=== PATIENT | female | born 2000 | race Caucasian/White ===

== ENCOUNTER 2020-01-04 14:11 | Emergency (ER) | payer OTHER, SELFPAY ==
[2020-01-04 14:13] VITALS: BP 133/78; PULSE 104; RESP 14; TEMP 36.6; O2SAT 97; BMI 28.3
--- NOTE | 2020-01-04 14:22 | DI.RAD.S_ITS ---
PROCEDURE: XR WRIST LT MIN 3V INDICATIONS: wrist pain TECHNIQUE: 3 views of the wrist were acquired. COMPARISON: None. FINDINGS: Bones: No fractures or dislocations. No suspicious bony lesions. Scaphoid view: Scaphoid is grossly intact. Soft tissues: Small corticated bony fragment adjacent to dorsal aspect of distal carpal row, likely represent old healed injury. IMPRESSION: No acute wrist fracture or dislocation. Dictated by: Calvin Scott M.D. on 01/04/2020 at 14:36 Approved by: Calvin Scott M.D. on 01/04/2020 at 14:47
[2020-01-04] MEDS: KETOROLAC 60 MG/2 ML VIAL IM (14:41)
--- NOTE | 2020-01-04 14:41 | ED.EXTPRO ---
HPI - Extremity Problem General Chief complaint: Extremity Problem,Nontraumatic Stated complaint: Hurt her Left Wrist Time Seen by Provider: 01/04/20 14:16 Source: patient Mode of arrival: Ambulatory Limitations: no limitations Related Data Allergies Allergy/AdvReac Type Severity Reaction Status Date / Time No Known Drug Allergies Allergy Verified 01/04/20 14:18 Patient History Social History Smoking Status: Unknown if ever smoked Smoking Status: Unknown if ever smoked alcohol intake frequency: holidays/special occasions only Substance Use Type: does not use Exam Initial Vital Signs Initial Vital Signs: Vital Signs Temperature 97.9 F 01/04/20 14:13 Pulse Rate 104 H 01/04/20 14:13 Respiratory Rate 14 01/04/20 14:13 Blood Pressure 133/78 01/04/20 14:13 Pulse Oximetry 97 01/04/20 14:13 Course Orders Ordered: ED Orders 01/04/20 14:22 XR wrist LT min 3V Stat Discontinued Medications Ketorolac Tromethamine (Toradol) 60 mg IM NOW ONE Stop: 01/04/20 14:23 Vital Signs Vital signs: Vital Signs - 8 hr 01/04/20 14:13 Temperature 97.9 F Pulse Rate 104 H Respiratory Rate 14 Blood Pressure 133/78 Pulse Oximetry 97
--- NOTE | 2020-01-04 15:59 | ED_ITS ---
HPI - Extremity Problem <VESNA Cornejo - Last Filed: 01/04/20 17:09> General Chief complaint: Extremity Problem,Nontraumatic Stated complaint: Hurt her Left Wrist Time Seen by Provider: 01/04/20 14:16 Source: patient Mode of arrival: Ambulatory Limitations: no limitations History of Present Illness HPI Narrative: The patient is a 19-year-old female nonsmoker presents with a chief complaint of left-sided wrist pain. She does not know of any precipitating event or fall that would cause pain. She states that she has history of ganglionic cyst on the right side of her wrist, and wonders if she is having 1 on her left side. She took Tylenol yesterday, but otherwise has not taken anything for pain. She has not applied ice or taken Motrin. She denies any previous injury. Related Data Previous Rx's Medication Instructions Recorded ketorolac 10 mg PO TID PRN #14 tab 01/04/20 Allergies Allergy/AdvReac Type Severity Reaction Status Date / Time No Known Drug Allergies Allergy Verified 01/04/20 14:18 Review of Systems <VESNA Cornejo - Last Filed: 01/04/20 17:09> Review of Systems Narrative: GENERAL: Denies chills, fatigue, malaise, fever, sweats. HEENT: Denies sinus pain, ear pain, sore throat, difficulty swallowing, dizziness. RESPIRATORY: Denies dyspnea, cough, wheezing, hemoptysis, sputum. CARDIOVASCULAR: Denies chest pain, palpitations, orthopnea, edema, GASTROINTESTINAL: Denies nausea, vomiting, abdominal pain, diarrhea, constipation, melena. : Denies dysuria, frequency, incontinence, hematuria, urinary retention. MUSCULOSKELETAL: See HPI SKIN: Denies rash, skin lesions, or other NEUROLOGIC: Denies weakness, headache, numbness, change in speech, confusion, seizures, incoordination. PSYCHIATRIC: No concerning psychosocial issues. 12 point review of systems is negative except for those stated above Patient History <VESNA Cornejo - Last Filed: 01/04/20 17:09> Medical History (Updated 01/04/20 @ 16:24 by VESNA Cornejo) History of ganglion cyst (Acute) Social History Smoking Status: Unknown if ever smoked Smoking Status: Unknown if ever smoked alcohol intake frequency: holidays/special occasions only Substance Use Type: does not use Exam <VESNA Cornejo - Last Filed: 01/04/20 17:09> Narrative Exam Narrative: GENERAL: This is a well-nourished, well-developed patient, in no acute distress HEAD: Atraumatic. Normocephalic. No temporal or scalp tenderness. EYES: Pupils equal round and reactive. Extraocular motions intact. No scleral icterus. No injection or drainage. ENT: Nose without bleeding, purulent drainage or septal hematoma. Throat without erythema, tonsillar hypertrophy or exudate. Uvula midline. Airway patent. NECK: Trachea midline. No JVD or lymphadenopathy. Supple, nontender, no meningeal signs. CARDIOVASCULAR: Regular rate and rhythm RESPIRATORY: No cough. No increased respiratory effort. No accessory muscle use. EXTREMITIES: General pain to palpation on dorsum of left wrist. Decreased range of motion all florez left wrist. Positive radial pulse left wrist. Capillary refill less than 2 seconds all fingers left hand. BACK: Nontender without deformity or crepitance. No flank tenderness. NEURO: AOx3. SKIN: No rash or erythema on visible skin. No erythema laceration or abrasion noted left wrist Initial Vital Signs Initial Vital Signs: Vital Signs Temperature 97.9 F 01/04/20 14:13 Pulse Rate 104 H 01/04/20 14:13 Respiratory Rate 14 01/04/20 14:13 Blood Pressure 133/78 01/04/20 14:13 Pulse Oximetry 97 01/04/20 14:13 <Ammy Villanueva DO - Last Filed: 01/04/20 19:23> Initial Vital Signs Initial Vital Signs: Vital Signs Temperature 97.9 F 01/04/20 14:13 Pulse Rate 104 H 01/04/20 14:13 Respiratory Rate 14 01/04/20 14:13 Blood Pressure 133/78 01/04/20 14:13 Pulse Oximetry 97 01/04/20 14:13 Procedures <VESNA Cornejo - Last Filed: 01/04/20 17:09> Orthopedic Splinting/Casting Injury #1: Side: left Upper Extremity Immobilizer: wrist splint (Black removable wrist splint) Post splinting neuro exam: intact Post splinting vascular exam: intact Placed by: Nursing Scores <VESNA Cornejo - Last Filed: 01/04/20 17:09> GCS Kennedy coma scale eye opening: Spontaneous Kennedy coma scale verbal response: Orientated Kennedy coma scale motor response: Obey commands Kennedy coma scale total score: 15 Course <VESNA Cornejo - Last Filed: 01/04/20 17:09> Orders Ordered: ED Orders 01/04/20 14:22 XR wrist LT min 3V Stat Discontinued Medications Ketorolac Tromethamine (Toradol) 60 mg IM NOW ONE Stop: 01/04/20 14:23 Last Admin: 01/04/20 14:41 Dose: 60 mg Documented by: PETE Vital Signs Vital signs: Vital Signs - 8 hr 01/04/20 14:13 01/04/20 16:29 Temperature 97.9 F Pulse Rate 104 H 71 Respiratory Rate 14 16 Blood Pressure 133/78 Blood Pressure [Right Arm] 113/54 L Pulse Oximetry 97 99 <Ammy Villanueva DO - Last Filed: 01/04/20 19:23> Orders Ordered: ED Orders 01/04/20 14:22 XR wrist LT min 3V Stat Discontinued Medications Ketorolac Tromethamine (Toradol) 60 mg IM NOW ONE Stop: 01/04/20 14:23 Last Admin: 01/04/20 14:41 Dose: 60 mg Documented by: PETE Vital Signs Vital signs: Vital Signs - 8 hr 01/04/20 14:13 01/04/20 16:29 Temperature 97.9 F Pulse Rate 104 H 71 Respiratory Rate 14 16 Blood Pressure 133/78 Blood Pressure [Right Arm] 113/54 L Pulse Oximetry 97 99 MDM - Extremity (Nontraumatic) <VESNA Cornejo - Last Filed: 01/04/20 17:09> Imaging Data Extremity x-ray #1: Radiologist's Impression: [address] [place] [id number] XRay Report Signed Patient: Martha Lisa RMR#: [id number] : 2000Acct:[id number] Age/Sex: 19 / FDate of Service: 01/04/20 Loc: ED Accession Number: [id number] Procedure: XR wrist LT min 3V Ordering Provider: Nina,Ammy [employer]TER OPERATOR-BC PROCEDURE: XR WRIST LT MIN 3V INDICATIONS: wrist pain TECHNIQUE: 3 views of the wrist were acquired. COMPARISON: None. FINDINGS: Bones: No fractures or dislocations. No suspicious bony lesions. Scaphoid view: Scaphoid is grossly intact. Soft tissues: Small corticated bony fragment adjacent to dorsal aspect of distal carpal row, likely represent old healed injury. IMPRESSION: No acute wrist fracture or dislocation. Dictated by: Calvin Scott M.D. on 01/04/2020 at 14:36 Approved by: Calvin Scott M.D. on 01/04/2020 at 14:47 MDM Narrative Medical decision making narrative: The patient is a 19-year-old female who presents with a chief complaint of 1 day history of wrist pain. She has a negative x-ray for any acute fracture, I did discuss the possibility of a previous injury given her x-ray. She was given Toradol in the emergency department, did give her prescription of that with strict instructions to not combine it with ibuprofen or Aleve. She is neurovascularly intact throughout her stay in the emergency department. Is possible that she strain or sprain injury without knowing what occurred. I discussed at length rest ice compression elevation as well as follow-up with primary care provider in the next few days. Patient has no questions or concerns upon discharge and states understanding of return precautions as well as follow-up care. Discharge Plan Departure Patient Disposition: Home Clinical Impression: Acute pain of left wrist Discharge Date/Time: 01/04/20 16:31 Instructions: How To Perform RICE (Rest, Ice, Compress, Elevate), DI for Wrist Pain Activity Restrictions/Additional Instructions: Thank you for trusting us with your care today As I discussed, your x-ray shows no acute fracture. This does not rule out a soft tissue injury such as a ligament or tendon injury. It is important that you follow up with primary care provider, especially if worsening or no improvement. There can be fractures that did not show up on initial x-ray. I have given you a prescription of Toradol. This is an NSAID. Do not combine it with other NSAIDs such as Aleve or ibuprofen. I suggest taking it with some food, as it can irritate your stomach. Please follow-up with primary care provider. Please use rest ice compression elevation Please come back to the emergency department for any acute concerns Prescriptions: New ketorolac 10 mg tablet 10 mg PO TID PRN (Reason: pain) Qty: 14 RF: 0 Referrals: Ngoc Weldon ARNP [Non-Staff] -
[2020-01-04 16:29] VITALS: BP 113/54; PULSE 71; RESP 16; O2SAT 99
== END 2020-01-04 16:31 | disposition home or self-care (01) ==
PROVIDERS: Emergency Provider Nurse Practitioner Family
DX: M25.532 Pain in left wrist (principal)
CPT/HCPCS: 73110; 96372; 99283; J1885

== ENCOUNTER 2020-10-28 20:14 | Emergency (ER) | payer OTHER, SELFPAY ==
--- NOTE | 2020-10-28 20:26 | DI.RAD.S_ITS ---
PROCEDURE: XR ACUTE ABDOMEN SERIES INDICATIONS: Abdominal pain, N/V TECHNIQUE: One view chest and two views of the abdomen were acquired. COMPARISON: None. FINDINGS: Surgical changes and devices: None. Chest: Lungs are clear. Heart size is normal. No pleural effusions. No pneumoperitoneum. Abdomen: There is a moderate amount of stool in colon. Bowel gas pattern is nonobstructive. No suspicious calcifications. Visualized solid organ contours appear normal. Bones: No suspicious bony lesions. IMPRESSION: Moderate amount of stool in colon. Nonobstructive bowel gas pattern. Dictated by: Young Coleman M.D. on 10/28/2020 at 21:32 Approved by: Young Coleman M.D. on 10/28/2020 at 21:34
[2020-10-28 20:29] VITALS: BP 134/89; PULSE 94; RESP 15; TEMP 37.2; O2SAT 99; BMI 34.0
[2020-10-28 20:33] VITALS: BP 125/65; PULSE 91; O2SAT 97
[2020-10-28 21:00] VITALS: BP 110/57; PULSE 85; O2SAT 99
[2020-10-28 21:30] VITALS: PULSE 87; O2SAT 98
[2020-10-28 22:00] VITALS: PULSE 82; O2SAT 97
[2020-10-28 22:26] VITALS: BP 113/62; PULSE 91; O2SAT 97
--- NOTE | 2020-10-29 00:19 | ED_ITS ---
HPI - Abdominal Pain General Chief Complaint: Abdominal Pain Stated Complaint: thinks food poisoning Time Seen by Provider: 10/28/20 20:17 Source: patient Mode of arrival: Ambulatory Limitations: no limitations History of Present Illness HPI narrative: 20F daily smoker without chronic medical problems presents with a chief complaint of an episode of crampy abdominal pain with nausea. She has vomited once. She no longer has much in the way of pain. She states that she was at work and told to come to the emergency department for evaluation. She was in her normal state of health prior to this event and started feeling poorly soon after eating a protein bar. She denies recent antibiotics, exposure to bad food, other ill persons. She denies any fever or chills. She states that she has been straining to have bowel movements and denies diarrhea. She denies any obvious provocation, palliation or radiation of her discomfort. Her symptoms 1st presented about 90 minutes prior to her arrival MD complaint: abdominal pain Onset (ago): minute(s) Pain Consistency: now resolved Location: diffuse Severity: moderate Quality: cramping Radiation: none Relieving factors: nothing Exacerbating factors: nothing Associated symptoms: nausea and vomiting Related Data Previous Rx's Medication Instructions Recorded ketorolac 10 mg PO TID PRN #14 tab 01/04/20 Allergies Allergy/AdvReac Type Severity Reaction Status Date / Time No Known Drug Allergies Allergy Verified 01/04/20 14:18 Review of Systems Constitutional Constitutional: Denies chills, Denies fatigue, Denies fever(s), Denies frequent falls, Denies lethargy and Denies weakness Eyes Eyes: Denies change in vision, Denies eye discharge, Denies irritation and Denies loss of vision ENT Ears, Nose, Mouth, and Throat: Denies change in voice, Denies dizziness, Denies neck pain, Denies sore throat and Denies throat swelling Cardiovascular Cardiovascular: Denies chest pain, Denies irregular heart rhythm, Denies lightheadedness, Denies palpitations, Denies dyspnea, Denies dyspnea on exertion and Denies orthopnea Respiratory Respiratory: Denies cough, Denies dyspnea, Denies dyspnea on exertion and Denies wheezing Gastrointestinal Gastrointestinal: Reports abdominal pain, Denies change in bowel habits, Reports constipation, Denies diarrhea, Reports nausea and Reports vomiting Musculoskeletal Musculoskeletal: Denies neck pain and Denies numbness Integumentary/Breasts Skin/Breast: Denies pruritus, Denies erythema, Denies rash and Denies wounds Neurologic Neurologic: Denies behavioral changes, Denies confusion, Denies dizziness, Denies frequent falls, Denies loss of vision, Denies numbness and Denies weakness Psychiatric Psychiatric: Denies anxiety, Denies behavioral changes, Denies confusion, Denies depression, Denies homicidal ideation and Denies suicidal ideation Endocrine Endocrine: Denies fatigue, Denies flushing and Denies palpitations Hematologic/Lymphatic Hematologic/Lymphatic: Denies easy bruising Allergic/Immunologic Allergic/Immunologic: Denies urticaria, Denies throat swelling and Denies wheezing Patient History Medical History History of ganglion cyst Social History Smoking Status: Current every day smoker Smoking Status: Current every day smoker tobacco type: vaping alcohol intake frequency: holidays/special occasions only Substance Use Type: does not use Exam Narrative Exam Narrative: GENERAL: [20] year old patient appears stated age. Well- nourished, well-developed patient, in mild distress. HEAD: Atraumatic. Normocephalic. EYES: Pupils equal round and reactive. Extraocular motions intact. No scleral icterus. No injection or drainage. ENT: Nose without bleeding, purulent drainage. Throat without erythema, tonsillar hypertrophy or exudate. Airway patent. NECK: Trachea midline. Non tender CARDIOVASCULAR: Regular rate and rhythm without murmurs, gallops, or rubs. RESPIRATORY: Clear to auscultation. Breath sounds equal bilaterally. No wheezes, rales, or rhonchi. GASTROINTESTINAL: Abdomen soft, non-tender, nondistended. EXTREMITIES: No edema or joint tenderness. BACK: Nontender without deformity or crepitance. No flank tenderness. NEURO: AOx3. SKIN: No rash or erythema of visible areas Initial Vital Signs Initial Vital Signs: Vital Signs Temperature 99.0 F 10/28/20 20:29 Pulse Rate 94 H 10/28/20 20:29 Respiratory Rate 15 10/28/20 20:29 Blood Pressure 134/89 10/28/20 20:29 Pulse Oximetry 99 10/28/20 20:29 Course Orders Ordered: ED Orders 10/28/20 20:26 XR acute abdomen series Stat Reevaluation(s) Reevaluation #1: Patient largely asymptomatic at time of discharge Vital Signs Vital signs: Vital Signs - 8 hr 10/28/20 20:29 10/28/20 20:33 10/28/20 21:00 Temperature 99.0 F Pulse Rate 94 H 91 H 85 Respiratory Rate 15 Blood Pressure 134/89 125/65 110/57 L Pulse Oximetry 99 97 99 10/28/20 21:30 10/28/20 22:00 10/28/20 22:26 Temperature Pulse Rate 87 82 91 H Respiratory Rate Blood Pressure 113/62 Pulse Oximetry 98 97 97 MDM - Abdominal Pain Lab Data Point of care testing: Point of Care Testing Test Results Negative Urine Dip Bedside Urine Glucose Negative Bedside Urine Bilirubin - Negative Bedside Urine Ketone - Negative Urine Specific [place] 1.030 Bedside Urine Occult Blood - Negative Bedside Urine pH 6.0 Bedside Urine Protein - Negative Bedside Urine Urobilinogen - Negative Bedside Urine Nitrite - Negative Bedside Urine Leukocytes - Negative Esterase MDM Narrative Medical decision making narrative: 20-year-old female reports difficulty with bowel movements, intermittent crampy abdominal pain and 1 episode of vomiting. She denies fever or chills. She is not dizzy nor weak or lightheaded. She has stable vital signs. She is drinking water without difficulty. Multiple diagnoses including pancreatitis, gallbladder disease, bowel obstruction, gastroenteritis considered. Likely discussion with the patient regarding the possible utility of labs and advanced imaging and given her very brief set of circumstances which resolved without any intervention we elect to hold off for now. She has been given return precautions and assures me she will return for worsening or persistent symptoms. Discharge Plan Departure Patient Disposition: Home Clinical Impression: Abdominal pain Qualifiers: Abdominal location: generalized Qualified Code(s): R10.84 - Generalized abdominal pain Instructions: DI for Abdominal Pain-Adult Activity Restrictions/Additional Instructions: *You have been diagnosed with [ abdominal pain with evidence of constipation on xray. Your exam and story are very reassuring otherwise ] *What to do: *Take over the counter medications as directed: 1. Metamucil - is a bulk forming laxative and adds fiber 2. Colace - softens your stool 3. Dulcolax suppository - stimulates your bowels *Follow up with your primary care provider in 2-3 days, call for appointment *Return to ER if you should have any new, worsening or concerning symptoms such as increasing or more persistent pain, ongoing vomiting, fever over 101 F or other bothersome symptoms *Drink plenty of water and eat foods high in fiber *Stay as active as you can as this helps move your bowels as well Prescriptions: No Action ketorolac 10 mg tablet 10 mg PO TID PRN (Reason: pain) Qty: 14 RF: 0
== END 2020-10-28 22:30 | disposition home or self-care (01) ==
PROVIDERS: Emergency Provider Emergency Medicine
DX: R10.84 Generalized abdominal pain (principal); R11.2 Nausea with vomiting, unspecified; K59.00 Constipation, unspecified
CPT/HCPCS: 74022; 81003; 81025; 99281; 99283